=== PATIENT | male | born 1975 ===

== ENCOUNTER 2021-01-26 15:13 | Emergency (ER) | payer SELFPAY ==
[~2021-01-26] VITALS: Ht 180.3 cm; Wt 75.0 kg
[2021-01-26 15:17] VITALS: BP 164/112; Ht 180.3 cm; Wt 75.0 kg
== END 2021-01-26 15:35 | disposition left against medical advice (07) ==
LOC: D.ER 15:13
DX: R51.9 Headache, unspecified (principal)